=== PATIENT | female | born 1990 | race Two or more races ===

== ENCOUNTER 2020-09-10 00:42 | Emergency (ER) | payer BC, OTHER ==
[~2020-09-10] VITALS: Ht 167.6 cm; Wt 95.3 kg
--- NOTE | 2020-09-10 00:53 | NUR ---
PT AAOX4. BIBSELF C/O GEN ABD PAIN +N/V SINCE 1699. +DYSURIA. PT PLACED IN BED 2 ON MONITOR AND PULSE OX. AWAITING ER MD FOR EVAL AND ORDERS. WILL CONTINUE TO MONITOR.
--- NOTE | 2020-09-10 00:54 | NUR ---
URINE COLLECTED AND SENT TO THE LAB.
[2020-09-10] MEDS ORDERED: ONDANSETRON HCL/PF 4 MG/2 ML VIAL IVP ONE (01:00)
[2020-09-10] MEDS ORDERED: MORPHINE SULFATE INJ 2 MG/ML DISP.SYRIN IV ONE (01:00)
[2020-09-10] MEDS ORDERED: IV NS 0.9% 1,000 ML BAG IV ONE (01:00)
[2020-09-10] MEDS ORDERED: ONDANSETRON HCL/PF 4 MG/2 ML VIAL ONE (01:07)
[2020-09-10] MEDS ORDERED: MORPHINE SULFATE INJ 4 MG/ML DISP.SYRIN ONE (01:07)
[2020-09-10 01:17] LABS: BILIRUBIN,URINE NEGATIVE (NEGATIVE); COLOR,URINE YELLOW (YELLOW); LEUKOCYTE ESTERASE ,URINE NEGATIVE (NEGATIVE); NITRITE, URINE NEGATIVE (NEGATIVE); PH,URINE 7.5 (5.0-8.0); PROTEIN,URINE NEGATIVE (NEGATIVE); UGLUCOSE NEGATIVE (NEGATIVE); UROBILINOGEN,URINE 0.2 EU/dL (0.2)
[2020-09-10 01:22] LABS: BASOPHILS % (AUTO) 0.2 % (0.0-2.0); EOSINOPHILS % (AUTO) 0.3 % (0.0-6.0); HEMATOCRIT 43 % (33-45); HEMOGLOBIN 14.4 g/dL (11.5-14.8); LYMPHOCYTES # (AUTO) 0.5 /CMM (0.8-4.8); LYMPHOCYTES % (AUTO) 4.2 % (20.0-44.0); MEAN CORPUSCULAR HGB CONC 34 g/dl (31.0-36.0); MEAN CORPUSCULAR VOLUME 88 fL (82-100); MONOCYTES # (AUTO) 0.3 /CMM (0.1-1.30); MONOCYTES % (AUTO) 2.8 % (2.0-12.0); NEUTROPHILS % (AUTO) 92.5 % (43.0-81.0); PLATELET COUNT (AUTO) 329 /CMM (150-450); RED BLOOD CELL COUNT(AUTO) 4.83 MIL/uL (4.0-5.2); WHITE BLOOD COUNT (AUTO) 10.8 K/uL (4.3-11.0)
[2020-09-10] MEDS ORDERED: IOHEXOL-300 100 ML VIAL IV ONE (01:24)
[2020-09-10] MEDS ORDERED: IV NS 0.9% 250 ML IV ONE (01:24)
[2020-09-10 01:26] LABS: CALCIUM, SERUM 8.8 mg/dL (8.5-10.1); CREATININE 0.9 mg/dL (0.6-1.3); POTASSIUM 3.6 mmol/L (3.5-5.1)
[2020-09-10 01:32] LABS: ALBUMIN 3.6 g/dL (3.4-5.0); BILIRUBIN,DIRECT 0.1 mg/dL (0.0-0.2); BILIRUBIN,TOTAL 0.7 mg/dL (0.2-1.0); TOTAL PROTEIN, SERUM 7.4 g/dL (6.4-8.2)
--- NOTE | 2020-09-10 01:37 | NUR ---
PATIENT TAKEN VIA WHEELCHAIR FOR CT SCAN.
[2020-09-10] MEDS ORDERED: TRAM50TA2 PO (01:39)
[2020-09-10] MEDS ORDERED: ONDA4TAB5 PO (01:39)
--- NOTE | 2020-09-10 01:55 | NUR ---
PATIENT RETURNED TO BED [address]
[2020-09-10 02:48] VITALS: BP 126/126
== END 2020-09-10 02:51 | disposition home or self-care (01) ==
LOC: ER 00:43
DX: R10.84 Generalized abdominal pain (principal); R11.2 Nausea with vomiting, unspecified; R19.7 Diarrhea, unspecified; Z88.0 Allergy status to penicillin; Z79.899 Other long term (current) drug therapy
CPT/HCPCS: 36415; 74177; 80048; 80076; 81003; 83690; 84703; 85025; 96361; 96374; 96375; 99285; J2270; J2405; J7030; J7050; Q9967

== ENCOUNTER 2023-12-23 13:35 | Emergency (ER) | payer BC ==
[~2023-12-23] VITALS: Ht 167.6 cm; Wt 95.3 kg
[~2023-12-23 13:35] MED LIST: ONDA4TAB5 PO; TRAM50TA2 PO
[2023-12-23 14:27] VITALS: BP 135/77; TEMP 98.2; O2SAT 98
[2023-12-23] MEDS ORDERED: HYDR-500 PO (14:59)
== END 2023-12-23 15:10 | disposition home or self-care (01) ==
LOC: ER 13:40
DX: F41.9 Anxiety disorder, unspecified (principal); Z88.0 Allergy status to penicillin